=== PATIENT | female | born 1965 | race Two or more races ===

== ENCOUNTER 2017-04-03 17:37 | Emergency (ER) | payer MEDICAID ==
[~2017-04-03] VITALS: Ht 157.5 cm; Wt 86.2 kg
[2017-04-03 17:59] VITALS: BP 113/76
[2017-04-03 18:30] VITALS: BP 127/74
[2017-04-03] MEDS ORDERED: Tetanus/Diptheria/Pertussis Vaccine 0.5ml Syr IM ONE (18:30)
[2017-04-03] MEDS ORDERED: Morphine Sulfate 4mg/ml Inj IVP ONE (18:30)
--- NOTE | 2017-04-03 18:58 | Emergency Room Report ---
History of Present Illness General Chief Complaint: Multiple Trauma/Fall Source: Patient Present Illness HPI [id number] [employer] patient with accidental trip and fall today, landed on left side. C/o pain to "whole left side" and hit head. Not on AC, ASA. Has "torn ligament" right knee. Walks with cane History of arthritis in both knees Allergies: Coded Allergies: No Known Allergies (Unverified , 04/03/17) Patient History Past Medical History: none, see triage record, old chart reviewed Past Surgical History: none, other - Right knee ligament injury? Pertinent Family History: none Social History: Denies: alcohol use, drug use, smoking Last Menstrual Period: na Now: No Immunizations: UTD Reviewed Nursing Documentation: PMH: Agreed, PSxH: Agreed Nursing Documentation-PMH Past Medical History: No History, Except For Hx Diabetes: Yes Hx Gastrointestinal Problems: Yes - gastric bypass Review of Systems All Other Systems: negative except mentioned in HPI Physical Exam Vital Signs Date Time Temp Pulse Resp B/P Pulse Ox O2 Delivery O2 Flow Rate FiO2 04/03/17 17:43 97.5 90 22 113/76 98 Room Air Sp02 EP Interpretation: reviewed, normal General Appearance: normal inspection, well appearing, no apparent distress, alert, GCS 15, non-toxic, obese Head: normocephalic, atraumatic Eyes: bilateral eye EOMI, bilateral eye PERRL ENT: normal ENT inspection, hearing grossly normal, normal voice Neck: normal inspection, full range of motion, supple, no bony tend Respiratory: normal inspection, lungs clear, normal breath sounds, no respiratory distress, no retraction, no wheezing Cardiovascular #1: regular rate, rhythm, no edema Gastrointestinal: normal inspection, normal bowel sounds, non tender, soft, no guarding, no hernia Genitourinary: other - Left upper extremity: TTP to left shoulder, left forearm. No obvious trauma or focal ttp to left hand, left wrist, left elbow. No ecchymoses or bruising. Abrasion to left proximal tibia below knee. Knee with full ROM. No ttp to distal lower extremity, ankle, foot Neurologic: normal inspection, alert, oriented x3, responsive, photography coordinator III-XII nml as tested, motor strength/tone normal, speech normal Psychiatric: normal inspection, judgement/insight normal, mood/affect normal Skin: normal inspection, normal color, no rash Lymphatic: normal inspection Medical Decision Making Diagnostic Impression: Primary Impression: Multiple injuries due to trauma Additional Impression: Fall Qualified Codes: W19.XXXA - Unspecified fall, initial encounter ER Course No acute traumatic injury on EP review of imaging CT head negative for ICH Analgesia provided Patient asked for left shoulder sling - advised that sling could cause frozen shoulder, worsen termite control representative recovery, but patient requesting nonetheless DC with T#3 F/up with PMD Other X-Ray Diagnostic Results Other X-Ray Diagnostic Results : PA Scribe Text Left forearm Emergency physician review 2 views No acute fx, dislocation, soft tissue injury Left shoulder Emergency physician review 3 views No acute fx, dislocation, soft tissue injury left tib fib Emergency physician review 2 views No acute fx, dislocation, soft tissue injury Last Vital Signs Date Time Temp Pulse Resp B/P Pulse Ox O2 Delivery O2 Flow Rate FiO2 04/03/17 17:59 97.5 90 22 113/76 98 Room Air Status: improved Disposition: HOME, SELF-CARE Scripts Acetaminophen With Codeine (T#3) (TYLENOL #3 TAB*) Y Tab 1 TAB ORAL Q8H Y for For Pain for 7 Days, #30 TAB Prov: HARLEY HUMPHREYS M.D. 04/03/17 Referrals: NON PHYSICIAN (PCP) HARLEY HUMPHREYS M.D. Apr 03, 2017 18:57
[2017-04-03 19:55] VITALS: BP 125/68
[2017-04-03] MEDS ORDERED: ACETAMINOPHEN-1 EAC1 ORAL (20:02)
[2017-04-03 21:13] VITALS: BP 125/68
--- NOTE | 2017-04-04 11:10 | Diagnostic Imaging Report ---
Indications: Fall, head pain Technique: Continuous helical CT imaging of the brain was performed with automatic exposure control on a Siemens sensation [address] scanner. Axial and coronal images were reconstructed at 5 mm slice thickness and interval. CTDI volume(s): 70 mGy Total DLP: 1340 mGy-cm Findings: Comparison: None. Peripheral sulci of both frontal lobes mildly prominent.. No evidence of mass or hemorrhage, other attenuation abnormality, mass effect, midline shift, hydrocephalus or increased intracranial pressure. Bone window images are unremarkable. Visualized paranasal sinuses and mastoid air cells are clear. IMPRESSION: Mild bifrontal atrophy Otherwise negative. The CT scanner at [facility] is accredited by the [employer] and the scans are performed using protocols designed to limit radiation exposure to as low as reasonably achievable to attain images of sufficient resolution adequate for diagnostic evaluation.
--- NOTE | 2017-04-04 11:12 | Diagnostic Imaging Report ---
Indications: Fall, left shoulder injury and pain Technique: 3 views left shoulder. Findings: Comparison: None No fracture, dislocation, joint space widening , surrounding soft tissue swelling/foreign body/gas, or other acute changes are identified. IMPRESSION: No evidence of acute injury to the left shoulder.
--- NOTE | 2017-04-04 14:24 | Diagnostic Imaging Report ---
Indications: Fall, left elbow injury, pain Technique: 3 views left elbow. Findings: Comparison: None Anterior fat pad mildly displaced. Posterior fat pad is not seen. No fracture, dislocation, joint space widening , surrounding soft tissue swelling/foreign body/gas, or other acute changes are identified. IMPRESSION: Questionable small joint effusion, nonspecific if real No other evidence of acute injury.
--- NOTE | 2017-04-04 14:24 | Diagnostic Imaging Report ---
Indications: Fall, left forearm injury and pain Technique: 2 views left forearm. Findings: Comparison: None Distal humeral anterior and possibly posterior fat pads are displaced. No fracture, dislocation, joint space widening , surrounding soft tissue swelling/foreign body/gas, or other acute changes are identified. IMPRESSION: Suggestion of elbow joint effusion. Radiographically occult fracture, especially of the radial head, not excludable. No other evidence of acute injury.
--- NOTE | 2017-04-04 14:24 | Diagnostic Imaging Report ---
Indications: Fall, left leg injury and pain Technique: 2 views left leg. Findings: Comparison: None Chronic appearing contour deformity proximal fibular diaphysis. No acute fracture, dislocation, joint space widening , surrounding soft tissue swelling/foreign body/gas, or other acute changes are identified. IMPRESSION: No evidence of acute injury left leg Old, healed proximal fibular fracture.
== END 2017-04-03 20:45 | disposition home or self-care (01) ==
LOC: EMR 18:25
DX: S09.8XXA Other specified injuries of head, initial encounter (principal); S80.812A Abrasion, left lower leg, initial encounter; S89.81XA Other specified injuries of right lower leg, initial encounter; S59.812A Other specified injuries left forearm, initial encounter; S49.82XA Other specified injuries of left shoulder and upper arm, initial encounter; W19.XXXA Unspecified fall, initial encounter; Y92.89 Other specified places as the place of occurrence of the external cause; E11.9 Type 2 diabetes mellitus without complications
CPT/HCPCS: 70450; 73030; 73080; 73090; 73590; 90471; 90715; 96374; 96375; 99284; J2270; J2405; 96372

== ENCOUNTER 2020-12-02 12:49 | Emergency (ER) | payer MEDICAID, OTHER ==
[~2020-12-02] VITALS: Ht 157.5 cm; Wt 83.9 kg
[~2020-12-02 12:49] MED LIST: ACETAMINOPHEN-1 EAC1 ORAL
[2020-12-02 13:05] VITALS: BP 117/69
--- NOTE | 2020-12-02 13:09 | NUR ---
ED Nurse Note: pt walked into the ed due to fall and injured her wrist.
[2020-12-02] MEDS ORDERED: ACETAMINOPHEN-1 EAC1 ORAL (13:35)
[2020-12-02 13:44] VITALS: BP 129/89
--- NOTE | 2020-12-02 13:45 | NUR ---
ER DISCHARGE NOTE: Patient is cleared to be discharged per ERMD, pt is aox4, on room air, with stable vital signs. pt was given dc and prescription instructions, pt was able to verbalize understanding, pt id band removed without complications. pt is able to ambulate with steady gait. pt took all belongings.
--- NOTE | 2020-12-02 15:03 | Diagnostic Imaging Report ---
EXAMINATIONS: 1. LEFT WRIST RADIOGRAPHS 2. LEFT HAND RADIOGRAPHS Indication: Left hand and wrist pain following injury Technique: 1. 3 views of the left wrist. 2. 3 views of the left hand Comparison: None Findings: Bone mineralization within normal limits. There is an acute, comminuted and impacted fracture of the distal radius. Additionally there is an acute, comminuted not significantly displaced fracture of the ulnar styloid. There is soft tissue swelling about the wrist. Hand radiographs demonstrate no additional fracture or dislocation. There is no radiopaque foreign body. IMPRESSION: Acute fractures of the distal radius and ulna.
--- NOTE | 2020-12-05 06:53 | Emergency Room Report ---
History of Present Illness General Chief Complaint: Multiple Trauma/Fall Source: Patient Present Illness HPI 55-year-old female presents with left wrist pain and swelling. States she fell yesterday and landed on her left wrist. Swollen and painful. Throbbing, 9 out of 10, nonradiating. No other aggravating relieving factors. 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 Patient History Past Medical History: other - gastric bypass Past Surgical History: none Pertinent Family History: none Social History: Denies: smoking, alcohol use, drug use Now: No Immunizations: UTD Reviewed Nursing Documentation: PMH: Agreed; PSxH: Agreed Nursing Documentation-PMH Hx Diabetes: Yes Hx Gastrointestinal Problems: Yes - gastric bypass Review of Systems All Other Systems: negative except mentioned in HPI Physical Exam Vital Signs Date Time Temp Pulse Resp B/P (MAP) Pulse Ox O2 Delivery O2 Flow Rate FiO2 12/02/20 13:00 97.5 68 19 117/69 (85) 98 Room Air Sp02 EP Interpretation: reviewed, normal General Appearance: no apparent distress, alert, GCS 15, non-toxic Head: normocephalic, atraumatic Eyes: bilateral eye normal inspection, bilateral eye PERRL ENT: hearing grossly normal, normal pharynx, no angioedema, normal voice Neck: full range of motion, supple/symm/no masses Respiratory: chest non-tender, lungs clear, normal breath sounds, speaking full sentences Cardiovascular #1: regular rate, rhythm, no edema Cardiovascular #2: 2+ carotid (R), 2+ carotid (L), 2+ radial (R), 2+ radial (L), 2+ dorsalis pedis (R), 2+ dorsalis pedis (L) Gastrointestinal: normal bowel sounds, non tender, soft, non-distended, no guarding, no rebound Rectal: deferred Genitourinary: normal inspection, no CVA tenderness Musculoskeletal: back normal, normal range of motion, gait/station normal, tender - L wrist swelling/TTP Neurologic: alert, motor strength/tone normal, oriented x3, sensory intact, responsive, speech normal Psychiatric: judgement/insight normal, memory normal, mood/affect normal, no suicidal/homicidal ideation Reflexes: 3+ bicep (R), 3+ bicep (L), 3+ tricep (R), 3+ tricep (L), 3+ knee (R), 3+ knee (L) Skin: no rash Lymphatic: no adenopathy Procedures Splinting Splinting : Consent: Verbal Hand-Made Type: plaster Splint: volar Pre-Proc Neuro Vasc Exam: normal Post-Proc Neuro Vasc Exam: normal Patient Tolerated: Well Complications: None Medical Decision Making Diagnostic Impression: Primary Impression: Wrist fracture Qualified Codes: S62.102A - Fracture of unspecified carpal bone, left wrist, initial encounter for closed fracture ER Course Hospital Course 55-year-old F presents to ED complaining of L wrist pain s/p fall Differential diagnoses include: Fracture, dislocation, sprain, contusion Clinical course Patient placed on stretcher. After initial history and physical, I ordered xrays of L hand, wrist Xrays prelim read shows distal radius/ulna fx. discussed findings with patient. Placed in volar splint. Safe for discharge with close outpatient follow-up. I will provide Ortho referrals Diagnosis - wrist fracture Stable and discharged to home with prescription for tylenol #3. apply ice, keep elevated. Followup with PMD. Return to ED if symptoms recur or worsen Other X-Ray Diagnostic Results Other X-Ray Diagnostic Results #1: X-Ray ordered: Left hand # of Views/Limited Vs Complete: 3 View Indication: Pain EP Interpretation: Yes Interpretation: no dislocation, other - Radius and ulna fracture Impression: Other - fracture Electronically Signed by: Electronically signed by Wong Gloria MD Other X-Ray Diagnostic Results #2: X-Ray ordered: Left wrist # of Views/Limited Vs Complete: 3 View Indication: Pain EP Interpretation: Yes Interpretation: no dislocation, other - distal radius and ulna fracture Impression: Other - Fracture Electronically Signed by: Electronically signed by Wong Gloria MD Last Vital Signs Date Time Temp Pulse Resp B/P (MAP) Pulse Ox O2 Delivery O2 Flow Rate FiO2 12/02/20 13:44 97.1 69 18 129/89 98 Room Air Status: improved Disposition: HOME, SELF-CARE Condition: Stable Scripts Acetaminophen With Codeine (T#3) (TYLENOL #3 TAB*) Y Tab 1 TAB ORAL Q8H PRN for For Pain, #12 TAB Prov: Wong Gloria MD 12/02/20 Referrals: [facility]REFERR[facility] ([facility] Open 24 hour /7 days a week by Appointment Only [address] [facility] [address] Patient Instructions: Wrist Fracture, [id number] Wong Gloria MD Dec 05, 2020 06:53
== END 2020-12-02 13:46 | disposition home or self-care (01) ==
LOC: EMR 13:15
DX: S62.102A Fracture of unspecified carpal bone, left wrist, initial encounter for closed fracture (principal); W19.XXXA Unspecified fall, initial encounter; Y92.9 Unspecified place or not applicable; E11.9 Type 2 diabetes mellitus without complications; Z98.84 Bariatric surgery status
CPT/HCPCS: 29125; 73110; 73130; Z7502; 99284